=== PATIENT | male | born 1965 | race Caucasian/White ===

== ENCOUNTER 2022-06-08 09:07 | Emergency (ER) | payer OTHER ==
[2022-06-08] MEDS ORDERED: DEXAMETHASONE 10 MG/ML VIAL IV STA ×2 (10:12→17:34)
[2022-06-08] MEDS ORDERED: KETOROLAC 30 MG/ML VIAL IVP STA (10:12)
[2022-06-08] MEDS ORDERED: ONDANSETRON 4 MG/2 ML VIAL IVP STA (10:46)
[2022-06-08] MEDS ORDERED: iohexoL-300 100 ML VIAL ONE (10:48)
[2022-06-08 10:51] LABS: CALCIUM 9.3 mg/dL (8.5-10.3); POTASSIUM 3.8 mmol/L (3.5-5.0)
--- NOTE | 2022-06-08 11:27 | ED Physician Documentation ---
History of Present Illness - Stated complaint Stated Complaint: FACE SWOLLEN - Chief complaint Chief Complaint: General - History obtained from History obtained from: Patient - Additonal information Additional information: The patient comes to the emergency department chief complaint of left neck swelling that began about 3 days ago and has progressively increased. He states that he woke up 3 mornings ago feeling as though he was "coming down with something". He reports aches, fatigue, and chills, as well as some upper respiratory symptoms. The patient states he began to notice a little swelling on the left side of his neck, just under his chin but did not think too much of it. The patient states that this is progressively increased until it has become painful to the touch and hurts to swallow. The patient states it is not impinging on his airway. He does not have any swelling or lymphadenopathy anywhere else. He no weight loss. No exposure to mono that he knows of. No other complaints at this time Review of Systems Ten Systems: 10 systems reviewed and negative Constitutional: reports: Chills, Myalgias, Fatigue Eyes: reports: Reviewed and negative Ears: reports: Reviewed and negative Nose: reports: Congestion Throat: reports: Reviewed and negative Cardiac: reports: Reviewed and negative Respiratory: reports: Reviewed and negative GI: reports: Reviewed and negative : reports: Reviewed and negative Skin: reports: Reviewed and negative Musculoskeletal: reports: Reviewed and negative Neurologic: reports: Reviewed and negative Psychiatric: reports: Reviewed and negative Endocrine: reports: Reviewed and negative Immunocompromised: reports: Reviewed and negative PD PAST MEDICAL HISTORY - Present Medications Home Medications: Ambulatory Orders Medication Instructions Recorded Confirmed No Known Home Medications 06/08/22 06/08/22 - Allergies Allergies/Adverse Reactions: Allergies Allergy/AdvReac Type Severity Reaction Status Date / Time No Known Drug Allergies Allergy Verified 06/08/22 09:23 PD ED PE NORMAL - Vitals Vital signs reviewed: Yes - General General: Alert and oriented X 3, No acute distress, Well developed/nourished - HEENT HEENT: Atraumatic, PERRL, EOMI, Moist mucous membranes - Neck Neck: Supple, no meningeal sign, Other (Large, 15 cm diameter, firm/rubbery mass on left neck, encompassing the left anterolateral portion of the neck up to the angle of the mandible. No fluctuance.) - Cardiac Cardiac: RRR, No murmur, Strong equal pulses - Respiratory Respiratory: No respiratory distress, Clear bilaterally - Derm Derm: Normal color, Warm and dry, No rash, Other (No erythema overlying neck mass. No induration or thickening of the skin.) - Extremities Extremities: No deformity - Neuro Neuro: Alert and oriented X 3 - Psych Psych: Normal mood, Normal affect Results - Vitals Vitals: Vital Signs - 24 hr 06/08/22 06/08/22 06/08/22 09:17 12:35 14:25 Temperature 37.2 C 37.3 C 36 C L Heart Rate 84 88 78 Respiratory 16 12 16 Rate Blood Pressure 133/80 H 112/86 H 111/78 O2 Saturation 100 97 97 06/08/22 06/08/22 16:58 18:26 Temperature 37 C 36.4 C L Heart Rate 69 72 Respiratory 16 16 Rate Blood Pressure 123/75 134/85 H O2 Saturation 95 96 Oxygen O2 Source Room air - Labs Labs: Laboratory Tests 06/08/22 06/08/22 06/08/22 10:30 10:30 10:30 WBC 16.4 H RBC 5.07 Hgb 15.2 Hct 46.1 MCV 90.9 MCH 30.0 MCHC 33.0 RDW 12.6 Plt Count 277 MPV 9.5 Neut # (Auto) 13.8 H Lymph # (Auto) 1.0 L Laurens # (Auto) 1.4 H Eos # (Auto) 0.0 Baso # (Auto) 0.1 Absolute Nucleated RBC 0.00 Nucleated RBC % 0.0 Sodium 138 Potassium 3.8 Chloride 100 L Carbon Dioxide 26 Anion Gap 12.0 BUN 14 Creatinine 1.0 Estimated GFR (MDRD) 77 L Glucose 171 H Calcium 9.3 Infectious Laurens Assay NEGATIVE - Rads (name of study) CT soft tissue neck Radiology: Final report received, EMP read indepedently, See rad report (Myositis and cellulitis versus early abscess of left sternocleidomastoid muscle. No vascular involvement.) Ultrasound soft tissue neck Radiology: Final report received, EMP read indepedently, See rad report (Myositis and early abscess formation in the sternocleidomastoid muscle on the left with subadjacent inflammatory lymphadenopathy) PD MEDICAL DECISION MAKING - ED course Complexity details: reviewed results, re-evaluated patient, considered differential, d/w patient ED course: The patient was treated with Toradol and Decadron. He was worked up with a BMP followed by a CT of the neck with IV contrast. CT of the neck showed edema and fluid collection involving the left sternocleidomastoid muscle, which was concerning for myositis and early abscess formation. An ultrasound was recommended by the radiologist. This was done and showed similar findings. I discussed the case with Dr. Gibbons of ENT at [facility] after starting vancomycin and Zosyn on this patient. She was able to view the records and stated that the patient did not appear to have a concentrated abscess but looked like early phlegmon with more diffuse fluid. She felt that the patient should stay in the hospital for acute 8-hour Decadron at 10 mg, and every 6 hours Unasyn. At this point in time, she stated they would not take the patient to the operating room, but that this could change if the patient's symptoms pr ogressed despite the above medication regimen. At this point in time, because we did not have any beds available in the hospital, the patient was transitioned to a hospital bed here in the ED and started on his medication regimen. He reported feeling much better after the initial Toradol and Decadron and was eating a meal without difficulty here in the ED. He is agreeable to the plan of staying here for now. We will plan to touch base with ENT tomorrow to determine what they would like to do. The patient is signed out to the oncoming emergency physician with the above plan, and pending bed availability here at [facility]. Departure - Departure Disposition: ED Place in Observation Clinical Impression: Abscess of muscle of neck Condition: Serious
[2022-06-08] MEDS ORDERED: iohexoL-300 100 ML VIAL IVP ONE (11:32)
[2022-06-08 11:37] LABS: INFECTIOUS MONONUCLEOSIS NEGATIVE (Negative)
[2022-06-08 11:43] LABS: BASOPHILS # (AUTO) 0.1 10^3/uL (0.0-0.1); BASOPHILS % (AUTO) 0.3 %; EOSINOPHILS % (AUTO) 0.1 %; HCT - HEMATOCRIT 46.1 % (42.0-52.0); HGB - HEMOGLOBIN 15.2 g/dL (14.0-18.0); LYMPHOCYTES % (AUTO) 5.8 %; MEAN CORPUSCULAR VOLUME 90.9 fL (80.0-94.0); MEAN PLATELET VOLUME 9.5 fL (7.4-11.4); MONOCYTES # (AUTO) 1.4 10^3/uL (0.0-1.0); MONOCYTES % (AUTO) 8.6 %; NEUTROPHILS # (AUTO) 13.8 10^3/uL (1.5-6.6); NEUTROPHILS % (AUTO) 84.6 %; PLT - PLATELET COUNT 277 10^3/uL (130-450); RED BLOOD COUNT 5.07 10^6/uL (4.70-6.10); RED CELL DISTRIBUTION WIDTH 12.6 % (12.0-15.0); WHITE BLOOD COUNT 16.4 x10^3/uL (4.8-10.8)
--- NOTE | 2022-06-08 12:17 | CT Report ---
PROCEDURE: SOFT TISSUE NECK W INDICATIONS: L neck mass CONTRAST: 100ml Omnipaque 300 TECHNIQUE: After the administration of intravenous contrast, 3.0 mm axial sections acquired from the sella to th e aortic arch. Additional oblique axial 3.0 mm sections acquired through the pharynx. 3 mm thick co kassandra reformats were generated. For radiation dose reduction, the following was used: automated exp osure control, adjustment of mA and/or kV according to patient size. COMPARISON: None. FINDINGS: Image quality: Excellent. Lymph nodes: There are prominent left-sided lymph nodes which are more in number than typically seen, and are likely reactive in nature. Some of these lymph nodes are fairly large, the largest of which measures approximately 2.6 x 2.5 x 1.8 cm. Vessels: Visualized vasculature appears patent. Neck spaces: The oropharynx, nasopharynx, and pharynx demonstrate no mucosal lesions. The vocal cor ds, false vocal cords, pyriform sinuses, epiglottis, vallecula, and tongue base all appear normal. E xtramucosal spaces appear unremarkable. Glands: The parotid and submandibular glands appear normal. The thyroid is normal in size and there are no incidental findings. Miscellaneous: Visualized brain and orbits appear normal. Lung apices appear clear. There is enlarg ement and edema of the left sternocleidomastoid muscle with possible developing early fluid formation suggesting early abscess developing. Reference image 62/3. The potential fluid measures approximatel y 1.5 x 0.8 cm. There is an infiltrative appearance of the fat deep to the sternocleidomastoid, sugge sting associated cellulitic change. Bones: No suspicious bony lesions. Visualized sinuses and mastoids appear unremarkable. IMPRESSION: Findings are most consistent with an infectious or inflammatory process involving the left sternoclei domastoid muscle with potential early abscess formation and inflammatory change deep to the muscle an d subjacent lymph node enlargement. Comment: Targeted ultrasound may be helpful to identify whether fluid is present in the sternocleidom astoid. Above discussed with Zulma Vila MD at the time of dictation. CLINICAL RECOMMENDATION STATEMENTS: In patients <35 years with an ITN detected on CT, MRI, or extrathyroidal ultrasound, the Committee re commends further evaluation with dedicated thyroid ultrasound if the nodule is "e1 cm and has no susp icious imaging features, and if the patient has normal life expectancy. In patients "e35 years with an ITN detected on CT, MRI, or extrathyroidal ultrasound, the Committee r ecommends further evaluation with dedicated thyroid ultrasound if the nodule is "e1.5 cm and has no s uspicious imaging features, and if the patient has normal life expectancy. (ACR, 2014) Reviewed by: Miquel Solomon MD on 06/08/2022 12:15 PM PST Approved by: Miquel Solomon MD on 06/08/2022 12:15 PM PST Station ID: [id number]
--- NOTE | 2022-06-08 14:12 | Ultrasound Report ---
PROCEDURE: Head or Neck Soft Tissue INDICATIONS: L neck mass, ? early abscess on CT TECHNIQUE: Real time scanning was performed of the neck region of interest, with image documentation . COMPARISON: CT soft tissue neck with contrast dated 06/08/2022. FINDINGS: The left sternocleidomastoid muscle is noted to be enlarged and heterogeneous in appearance . There is a small amount of fluid present within it suggesting probable early abscess formation. The re are multiple subjacent enlarged lymph nodes, the largest of which measure 2.4 x 1.5 x 2.5 cm and 2 .0 x 1.3 x 1.5 cm respectively. IMPRESSION: Myositis and early abscess formation in the sternocleidomastoid muscle with subjacent inflammatory ly mphadenopathy. Reviewed by: Miquel Solomon MD on 06/08/2022 2:11 PM PST Approved by: Miquel Solomon MD on 06/08/2022 2:11 PM PST Station ID: [id number]
[2022-06-08] MEDS ORDERED: VANCOMYCIN IV STA (15:18)
[2022-06-08] MEDS ORDERED: PIPERACILLIN/TAZOBACTAM 3.375 GM in SODIUM CHLORIDE 0.9% MINIBAG 100 ML IV STA (15:18)
[2022-06-08] MEDS ORDERED: SODIUM CHLORIDE 0.9% IV STA (15:18)
[2022-06-08] MEDS ORDERED: VANCOMYCIN INJ 1.75 GM in SODIUM CHLORIDE 0.9% 500 ML IV STA (15:42)
[2022-06-08] MEDS: AMPICILLIN/SULBACTAM 3 GM in SODIUM CHLORIDE 0.9% MINIBAG 100 ML IV SCH (23:14)
[2022-06-09] MEDS: DEXAMETHASONE 10 MG/ML VIAL IV SCH ×2 (01:33→09:18)
[2022-06-09] MEDS: AMPICILLIN/SULBACTAM 3 GM in SODIUM CHLORIDE 0.9% MINIBAG 100 ML IV SCH ×2 (05:15→11:55)
--- NOTE | 2022-06-09 12:15 | ED Physician Documentation ---
ED Addendum - Addendum Addendum: Patient received in signout For ongoing management of abscess to left neck. Patient reports feeling better this morning and says that it seems that the swelling and discomfort have gone down. His speech is clear. He does not have any trouble with his breathing. He has been afebrile. He has continued on IV antibiotics and steroids overnight. Swelling visible to L neck, no overlying redness. Clear speech. Able to lay flat while sleeping. While awaiting a callback from ENT at [facility] I did also review the case with Dr. Jesus ([facility]). He was able to review the images. He recommends watching the patient until this afternoon if continues to improve then would d ischarge on 14 days of Augmentin and p.o. Decadron. He can see the patient in the office tomorrow and follow as an outpatient. D/W Dr. Jauregui (ENT at ). If swelling and symptoms have improved then would recommend 1 more dose of IV Unasyn and discharged on Augmentin and steroids. 06/09/22 12:11 Patient continues to feel well. He tolerated his food. Reviewed recommendations from ENT and plan for follow-up with Dr. Jesus. Departure - Departure Disposition: Home, Self Care Clinical Impression: Abscess of muscle of neck Condition: Good Follow-Up: Yeison Jesus DDS [Provider Admit Priv/Credential] - Prescriptions: Amox/Clav 875/125 [Augmentin] 1 each PO Q12H #28 tablet dexAMETHasone [Decadron] 6 mg PO DAILY 7 Days #11 tablet Comments: You were found to have an abscess (Infection) In the area of your left neck. After consultation with specialist at the [facility], we have given you IV antibiotics and IV steroids for 24 hours. Your symptoms have improved since starting the treatment and they are comfortable with you going home on oral antibiotics and steroids.I have sent prescriptions for Augmentin and Decadron to [facility] in [place]. I have also listed the information for Dr. Jesus Who is an oral maxillofacial Specialist on [facility] and is agreeable to seeing you as an outpatient for continued follow-up.Please give his office a phone call tomorrow. If you have any worsening symptoms such as fever, increased swelling, redness to the skin or any other concerns please return to the emergency department. Discharge Date/Time: 06/09/22 12:55
[2022-06-09 12:50] VITALS: BP 122/66
== END 2022-06-09 12:55 | disposition home or self-care (01) ==
LOC: ED 09:07
DX: M60.08 Infective myositis, other site (principal); Z20.822 Contact with and (suspected) exposure to COVID-19
CPT/HCPCS: 36415; 70491; 76536; 80048; 85025; 86308; 87635; 96365; 96366; 96367; 96375; 96376; 99284; 99285; J3370; Q9967

== ENCOUNTER 2022-06-24 12:59 | Outpatient (CLI) | payer OTHER ==
[2022-06-24 13:15] LABS: BASOPHILS # (AUTO) 0.1 10^3/uL (0.0-0.1); BASOPHILS % (AUTO) 1.6 %; EOSINOPHILS # (AUTO) 0.4 10^3/uL (0.0-0.7); EOSINOPHILS % (AUTO) 6.1 %; HCT - HEMATOCRIT 44.9 % (42.0-52.0); HGB - HEMOGLOBIN 14.3 g/dL (14.0-18.0); LYMPHOCYTES # (AUTO) 1.9 10^3/uL (1.5-3.5); LYMPHOCYTES % (AUTO) 27.5 %; MEAN CORPUSCULAR HGB CONC 31.8 g/dL (32.0-36.0); MEAN CORPUSCULAR VOLUME 94.1 fL (80.0-94.0); MEAN PLATELET VOLUME 9.2 fL (7.4-11.4); MONOCYTES # (AUTO) 0.6 10^3/uL (0.0-1.0); MONOCYTES % (AUTO) 9.1 %; NEUTROPHILS # (AUTO) 3.7 10^3/uL (1.5-6.6); NEUTROPHILS % (AUTO) 55.6 %; PLT - PLATELET COUNT 255 10^3/uL (130-450); RED BLOOD COUNT 4.77 10^6/uL (4.70-6.10); RED CELL DISTRIBUTION WIDTH 13.3 % (12.0-15.0); WHITE BLOOD COUNT 6.7 x10^3/uL (4.8-10.8)
[2022-06-24] MEDS ORDERED: iohexoL-300 100 ML VIAL ONE (13:35)
--- NOTE | 2022-06-24 15:06 | CT Report ---
PROCEDURE: CT neck with contrast INDICATIONS: NECK MASS CONTRAST: Omni 300 80ml TECHNIQUE: After the administration of intravenous contrast, 3.0 mm axial sections acquired from the sella to th e aortic arch. 3 mm thick coronal reformats were generated. For radiation dose reduction, the follo wing was used: automated exposure control, adjustment of mA and/or kV according to patient size. COMPARISON: 06/08/2022 FINDINGS: Skull Base: The visualized intracranial contents, skull, and orbits are unremarkable. Visualized par anasal sinuses are clear. Pharynx and Larynx: The nasopharyngeal airway is patent and midline. Parapharyngeal soft tissues in cluding palantine tonsils and base of the tongue are normal. Retropharyngeal space unremarkable. No rmal appearance of the false and true vocal cords. Muscles and Fascial Planes: There is now mature abscess centered on the left sternocleidomastoid musc le measuring 1.7 x 2.9 x 3.8 cm. Abscess is multiloculated, and extends through the medial aspect of the muscle into the deep fascial planes. Adjacent adenopathy noted. Lymph Nodes: As above Vasculature: Unremarkable. Submandibular and Parotid Glands: Normal in size and attenuation. Thyroid: Unremarkable. No enlarged or calcified nodules. Bones: No acute fracture. No osteolytic or blastic lesion is evident. Normal bone mineralization. Lung Apices: The visualized lung apices are clear. IMPRESSION: 1. Left-sided mature abscess seen in the left sternocleidomastoid as above. Consider image guided dra vazquez Reviewed by: Jesus Handley MD on 06/24/2022 2:05 PM AKST Approved by: Jesus Handley MD on 06/24/2022 2:05 PM AKST Station ID: [id number]
[2022-06-24] MEDS ORDERED: iohexoL-300 100 ML VIAL IVP ONE (17:58)
== END 2022-06-24 13:00 | disposition home or self-care (01) ==
LOC: LAB 12:59
PROVIDERS: ATTEND Dentist Oral and Maxillofacial Surgery
DX: R22.1 Localized swelling, mass and lump, neck (principal); M60.08 Infective myositis, other site
CPT/HCPCS: 36415; 70491; 82565; 85025; Q9967